=== PATIENT | male | born 1935 | race Caucasian/White ===

== ENCOUNTER 2016-05-26 05:35 | Day surgery (SDC) | payer OTHER, MEDICARE ==
[~2016-05-26] VITALS: Ht 182.9 cm; Wt 115.6 kg
[~2016-05-26 05:35] MED LIST: LEVO-T150 MCG PO; LO-DOSE ASPIRIN81 M2 PO; MULTI-DAY VITA1 EACH PO; OSTEO BI-FLEX1 EAC4 PO
[2016-05-26 06:08] VITALS: BP 160/86
[2016-05-26 09:55] VITALS: BP 172/82
== END 2016-05-26 10:25 | disposition home or self-care (01) ==
LOC: SDC 05:35
DX: T85.22XA Displacement of intraocular lens, initial encounter (principal); Y83.1 Surgical operation with implant of artificial internal device as the cause of abnormal reaction of the patient, or of later complication, without mention of misadventure at the time of the procedure; I10 Essential (primary) hypertension; E03.9 Hypothyroidism, unspecified; E66.9 Obesity, unspecified; Z68.38 Body mass index [BMI] 38.0-38.9, adult; Z79.82 Long term (current) use of aspirin; Z82.49 Family history of ischemic heart disease and other diseases of the circulatory system; Z80.7 Family history of other malignant neoplasms of lymphoid, hematopoietic and related tissues
CPT/HCPCS: J0690; J1100; J1885; J2405; J3010; J3300